=== PATIENT | female | born 1955 | race Caucasian/White ===

== ENCOUNTER 2019-03-22 06:26 | Day surgery (SDC) | payer MEDICARE, BC, SELFPAY ==
[2019-03-15 07:51] VITALS: BMI 22.3
[2019-03-22] VITALS (14 sets, daily range): BP systolic 106–178; BP diastolic 71–104; PULSE 55–74; RESP 10–20; TEMP 35.8–36.3; O2SAT 94–99; BMI 22.3
--- NOTE | 2019-03-22 | DI.RAD.S_ITS ---
PROCEDURE: XR CHEST 1V INDICATIONS: PORT PLACEMENT TECHNIQUE: One view of the chest was acquired. COMPARISON: None. FINDINGS: Surgical changes and devices: Port placement from right sided approach extends into the superior aspect of the superior vena cava. Surgical clips likely related to prior breast carcinoma are noted on the right, upper outer quadrant area.. Lungs and pleura: Lungs are clear. No pleural effusions or pneumothorax. Mediastinum: Mediastinal contours appear normal. Heart size is normal. Bones and chest wall: No suspicious bony lesions. Overlying soft tissues appear unremarkable. IMPRESSION: No pneumothorax after central line placement with tip in the upper aspect of the superior vena cava. Dictated by: Mark Anthony Jackson M.D. on 03/22/2019 at 10:57 Approved by: Mark Anthony Jackson M.D. on 03/22/2019 at 10:59
[2019-03-22] MEDS: LACTATED RINGERS 1,000 ML 42 ML IV (07:08)
--- NOTE | 2019-03-22 07:30 | PM.HP.1 ---
History of Present Illness History of Present Illness Date Patient Seen: 03/22/19 Time Patient Seen: 07:30 Chief complaint: [id number] Narrative: This is a 63-year-old female with right breast cancer,pT1c pN0. She has already undergone a lumpectomy and sentinel lymph node biopsy. She is scheduled to undergo chemotherapy as part of her breast cancer treatment. She is here today for a Port-A-Cath placement.. Today she is feeling well without pain nausea vomiting fever. Patient History Medical History Diverticulitis (Acute) Melanoma (Acute) Osteoporosis (Acute) Pneumonia (Acute) Surgical History History of hysterectomy (Acute) History of lumpectomy of right breast (Acute) Hx of rhinoplasty (Acute) S/P lumpectomy, right breast (Acute 01/25/19) Family & Social History Family History Mother Hypotension Brother Bladder cancer Brother Cancer of kidney Father Esophageal cancer Father Emphysema lung Social History: household members spouse Tobacco & Substance use: Smoking Status Never smoker alcohol intake current alcohol intake frequency 0-2 drinks per day Substance Use Type does not use Meds Home Medications and Allergies Home Medications Medication Instructions Recorded Confirmed Type calcium carbonate [Calcium 500] 1,500 mg DAILY 02/10/19 03/22/19 History multivitamin 1 tab PO DAILY 02/10/19 03/22/19 History dexamethasone 8 mg PO BID #48 tab 03/15/19 03/22/19 Rx Allergies Allergy/AdvReac Type Severity Reaction Status Date / Time Sulfa (Sulfonamide Allergy Rash Verified 03/22/19 07:14 Antibiotics) Review of Systems Review of Systems Narrative: A 10 point review of systems is negative except as noted in the HPI Exam Vital Signs (past 8 hours): - 03/22/19 07:15 03/22/19 07:19 Temperature 97.4 F L 97.4 F L Pulse Rate 74 74 Respiratory Rate 20 20 Blood Pressure 178/104 H 178/102 H Pulse Oximetry 99 Oxygen Delivery Method Room Air Narrative Exam Narrative: General-no acute distress, well nourished HEENT-moist mucous membranes, no scleral icterus Neck-supple, no lymphadenopathy Chest- non labored respirations, clear to auscultation bilaterally Cardiac-regular rate no peripheral edema Abdomen-soft, nontender, non distended Extremities-warm, well perfused Neurological-alert and oriented, no focal deficits Assessment & Plan Assessment and plan (1) Cancer of right breast, stage 1, estrogen receptor positive: Current visit: No Status: Acute Assessment & Plan narrative: This is a 63-year-old female with right breast cancer pT1c pN0. She is here today for Port-A-Cath placement. We discussed the nature of the procedure including the risks of bleeding infection pneumothorax. Will will plan for a left sided Port-A-Cath. Her questions have been answered she is in agreement with this plan.
[2019-03-22] MEDS: CEFAZOLIN 2 GM/100 ML FROZ.PIGGY IV (07:45)
--- NOTE | 2019-03-22 08:09 | SUR.OPER ---
Supine on padded OR bed, head on pillow, left arm padded and tucked at side, right arm secured on padded armboard, legs uncrossed, safety belt at thigh, tape over blanket over lower legs .
[2019-03-22] MEDS: HEPARIN 5,000 UNIT, SODIUM CHLORIDE 0.9% 50 ML IV (08:16)
[2019-03-22] MEDS: BUPIVACAINE 0.25% (PF) VIAL 30 ML INJ (08:17)
--- NOTE | 2019-03-22 09:09 | PM.OP.1 ---
Operative Date/Time/Diagnoses Date of procedure: 03/22/19 Time of procedure: 09:09 Pre-op diagnosis: Right breast cancer Post-op diagnosis: same Procedure & Clinicians Procedure: Ultrasound-guided Port-A-Cath placement Same procedure as scheduled: Yes Indications: 63-year-old female with breast cancer presents for a Port-A-Cath placement to facilitate chemotherapy Surgeon: Ar Rose Click Yes if Unassisted: Yes Anesthesia Type: General Operative Notes Findings: Port flushes and draws easily. Portable chest x-ray is pending in PACU. Estimated Blood Loss (mL): 10 Procedure in detail: Patient was brought to the operating room placed supine on table. Bilateral lower extremity compressive devices were applied. General anesthesia was induced and he was intubated with an LMA. He was then prepped and draped in usual sterile fashion. Time-out was performed ensure the correct patient procedure necessary equipment within the operating room. He received 2 g of Ancef prior to incision. Under ultrasound guidance attempts were made to access the left internal jugular vein. I was unable to access this vein as it continued to collapse. I moved to the right side and using ultrasound the right internal jugular vein was accessed under direct visualization. The guidewire was then threaded through the needle. Its placement was then confirmed using fluoroscopy. The dilator was then placed over the guidewire. The catheter was then inserted through the sheath. Placement was again confirmed with fluoroscopy. A subcutaneous pocket was made in the right chest wall. The tunneler device was used to move the catheter from the neck to the chest pocket. The port was attached after it was primed with heparined saline. The port was tested to ensure that it flushed easily and had good blood return. The port was then secured to the underlying fascia using interupted 0 Prolene suture. Hemostasis was achieved. The wound was irrigated with sterile saline. The subcutaneous tissues were reapproximated with the 3 0 Vicryl and then skin closed with 4-0 Monocryl. The skin was sealed with Dermabond. Patient tolerated procedure well. The sponge and instrument count at the end operation was correct. Patient emerged from general anesthesia was extubated and taken to the postoperative care unit in stable condition Complications: none Post-operative Condition: stable Disposition: same day surgery
[2019-03-22] MEDS: ONDANSETRON 4 MG/2 ML INJ IV (09:23)
[2019-03-22] MEDS: METOCLOPRAMIDE 10 MG/2 ML INJ IV (09:44)
[2019-03-22] MEDS: ACETAMINOPHEN 325 MG TABLET 650 MG PO (10:57)
--- NOTE | 2019-03-22 11:00 | SUR.PHASEII ---
LOw grade complaint of nausea, treated in PACU with meds, initially gone, then when pt ready to go stated she felt a tad nausea, now better, sipping tea with fiend at bedside, d/c instructions discussed with both, both voiced an understanding. Pt medicated with tylenol by Darleen, see EMAR.
--- NOTE | 2019-03-22 11:20 | SUR.PHASEII ---
Pt asked to go, denied nausea, denied pain. Dressed and left when ready and left in stable condition. Site remained, c/d/i underneath tegaderm.
== END 2019-03-22 11:20 | disposition home or self-care (01) ==
PROVIDERS: PCP Family Medicine; Referring Provider Family Medicine; Visit Provider Surgery
PROC: (CPT 36561; principal; 2019-03-22 07:45)
DX: C50.911 Malignant neoplasm of unspecified site of right female breast (principal); Z17.0 Estrogen receptor positive status [ER+]; Z45.2 Encounter for adjustment and management of vascular access device
CPT/HCPCS: 36561; 71045; 76000; C1788; J0690; J1644; J2405; J2704; J2765; J3010

== ENCOUNTER → 2019-07-23 15:14 | Outpatient (CLI) | payer MEDICARE, BC, SELFPAY ==
[2019-07-24 07:28] LABS: COVID19 Sendout Not Detected (Not Detect)
== END ==
PROVIDERS: PCP Family Medicine; Visit Provider Physician Assistant
DX: Z01.818 Encounter for other preprocedural examination (principal)
CPT/HCPCS: 87635

== ENCOUNTER 2019-07-26 14:51 | Day surgery (SDC) | payer MEDICARE, BC, SELFPAY ==
[2019-07-25 11:03] VITALS: BMI 22.3
[2019-07-26] VITALS (8 sets, daily range): BP systolic 130–179; BP diastolic 83–105; PULSE 68–79; RESP 10–20; TEMP 36.1–36.7; O2SAT 94–97; BMI 22.3
[2019-07-26] MEDS: LACTATED RINGERS 1,000 ML 100 ML IV (15:44)
[2019-07-26] MEDS: ACETAMINOPHEN 325 MG TABLET 975 MG PO (15:45)
[2019-07-26] MEDS: GABAPENTIN 300 MG CAPSULE PO (15:46)
--- NOTE | 2019-07-26 16:31 | PM.HP.1 ---
History of Present Illness History of Present Illness Date Patient Seen: 07/26/19 Time Patient Seen: 16:32 Chief complaint: [id number] Narrative: 64-year-old female with a history of right breast cancer who underwent lumpectomy sentinel lymph node biopsy and chemotherapy via Port-A-Cath. She is here today for Port-A-Cath removal. She is feeling well without fever port issues and she has tolerated the chemotherapy well. Patient History Medical History Diverticulitis (Acute) Melanoma (Acute) Osteoporosis (Acute) Pneumonia (Acute) Port-A-Cath in place (Acute 03/22/19) Surgical History History of hysterectomy (Acute) History of lumpectomy of right breast (Acute) Hx of rhinoplasty (Acute) S/P lumpectomy, right breast (Acute 01/25/19) Family & Social History Family History Mother Hypotension Brother Bladder cancer Brother Cancer of kidney Father Esophageal cancer Father Emphysema lung Social History: household members spouse Tobacco & Substance use: Smoking Status Never smoker alcohol intake current alcohol intake frequency 0-2 drinks per day Substance Use Type does not use Meds Home Medications and Allergies Home Medications Medication Instructions Recorded Confirmed Type calcium carbonate [Calcium 500] 1,500 mg PO DAILY 02/10/19 07/25/19 History multivitamin 1 tab PO DAILY 02/10/19 07/25/19 History Allergies Allergy/AdvReac Type Severity Reaction Status Date / Time Sulfa (Sulfonamide Allergy Rash Verified 07/26/19 15:23 Antibiotics) Review of Systems Review of Systems Narrative: A 10 point review of systems is negative except as noted in the HPI Exam Vital Signs (past 8 hours): - 07/26/19 15:25 Temperature 98.1 F Pulse Rate 77 Respiratory Rate 16 Blood Pressure 171/98 H Pulse Oximetry 96 Oxygen Delivery Method Room Air Narrative Exam Narrative: General-no acute distress, well nourished HEENT-moist mucous membranes, no scleral icterus Neck-supple, no lymphadenopathy Chest- non labored respirations, clear to auscultation bilaterally Cardiac-regular rate no peripheral edema Abdomen-soft, nontender, non distended Extremities-warm, well perfused Neurological-alert and oriented, no focal deficits Assessment & Plan Assessment & Plan narrative: 64-year-old female here for a Port-A-Cath removal after completing chemotherapy for breast cancer I discussed the technical nature of the procedure with her the operative risks of bleeding infection air embolism. Her questions have been answered she is in agreement with this plan will proceed to the operating room.
[2019-07-26] MEDS: CEFAZOLIN 2 GM/100 ML FROZ.PIGGY IV (16:45)
--- NOTE | 2019-07-26 16:58 | SUR.OPER ---
Supine on padded OR bed, head on pillow, arm padded and tucked at side, legs uncrossed, safety belt at thigh, tape over blanket over lower legs .
[2019-07-26] MEDS: BUPIVACAINE 0.25% (PF) VIAL 30 ML INJ (17:03)
--- NOTE | 2019-07-26 17:21 | PM.OP.1 ---
Operative Date/Time/Diagnoses Date of procedure: 07/26/19 Time of procedure: 17:21 Pre-op diagnosis: Breast cancer Post-op diagnosis: same Procedure & Clinicians Procedure: Port-A-Cath removal Same procedure as scheduled: Yes Indications: 64-year-old female with a history of right breast cancer who is completed chemotherapy a presents for Port-A-Cath removal. Surgeon: Ar Rose Anesthesia Type: MAC +/- Operative Notes Findings: Port-A-Cath catheter is intact Estimated Blood Loss (mL): 10 Procedure in detail: Patient was brought to the operating room and placed supine on the table. Bilateral lower extremity compression devices were applied. She received 2 g of Ancef prior to skin incision. Monitored anesthesia care was induced. Time-out was performed ensure the correct patient procedure necessary equipment within the operating room. She was prepped and draped in sterile fashion. An incision through the previous of Port-A-Cath scar on the right chest.. The subcutaneous tissues were divided with electrocautery. The Port-A-Cath was encountered and was freed from its surrounding attachments. The site of catheter entry was suture ligated with Vicryl suture at the 2 same time that the acute catheter was removed. The wound was hemostatic. Was irrigated and the skin healed infiltrated with local anesthetic. The subcutaneous tissue was closed with the Vicryl skin closed with a running 4 Monocryl suture followed by Dermabond and Steri-Strips. Patient emerged from anesthesia and was transferred to recovery room in stable condition. Complications: none Post-operative Condition: stable Disposition: same day surgery
--- NOTE | 2019-07-26 17:38 | SUR.PHASEI ---
Dr. Rose at bedside. Per Dr. Rose ok for pt to be discharged to home at this time. Notified Dr. Rose of pt pacu blood pressure readings, no new orders received. pt asymptomatic at this time.
[2019-07-26] MEDS: ONDANSETRON 4 MG ODT SL (17:57)
--- NOTE | 2019-07-26 17:58 | SUR.PHASEII ---
After taking pt IV out, pt c/o feeling nausated. Pt appeared pale in color. Placed cool wash cloth over pt forehead, lowered head of bed and turned over head light off. Zofran given per verbal order received from Dr. Perdue. Pt reports feeling better after zofran received. pt resting in bed at this time, bed in lowest position and call light given to pt.
== END 2019-07-26 18:31 | disposition home or self-care (01) ==
PROVIDERS: PCP Family Medicine; Referring Provider Surgery; Visit Provider Surgery
PROC: (CPT 36590; principal; 2019-07-26 16:15)
DX: Z45.2 Encounter for adjustment and management of vascular access device (principal); Z85.3 Personal history of malignant neoplasm of breast
CPT/HCPCS: 36590; J0690; J2250; J2704; J3010

== ENCOUNTER → 2019-08-18 12:25 | Outpatient (CLI) | payer MEDICARE, BC, SELFPAY | PROVIDERS: PCP Nurse Practitioner Family; Referring Provider Internal Medicine Hematology & Oncology; Visit Provider Internal Medicine Hematology & Oncology | DX: M81.0 Age-related osteoporosis without current pathological fracture (principal); Z78.0 Asymptomatic menopausal state; C50.911 Malignant neoplasm of unspecified site of right female breast; Z17.0 Estrogen receptor positive status [ER+]; Z82.62 Family history of osteoporosis | CPT/HCPCS: 77080 ==

== ENCOUNTER 2019-12-28 16:59 | Emergency (ER) | payer MEDICARE, BC, SELFPAY ==
[2019-12-28] VITALS (12 sets, daily range): BP systolic 152–209; BP diastolic 94–113; PULSE 69–88; RESP 11–22; TEMP 35.8–36.4; O2SAT 95–98; BMI 24.0
[2019-12-28 19:28] LABS: Add Manual Diff / Slide Review NO; Basophils Absolute Auto 100 /uL (0-100); Basophils Percent Auto 1.3 % (0-2); Eosinophils Absolute Auto 200 /uL (0-450); Eosinophils Percent Auto 3.3 % (2-4); Hematocrit 40.3 % (36-46); Hemoglobin 13.3 g/dL (12.0-16.0); Lymphocytes Absolute Auto 1600 /uL (1100-4500); Lymphocytes Percent Auto 29.5 % (25-40); Mean Corpuscular HGB Conc 32.9 % (30-36); Mean Corpuscular Hemoglobin 29.2 PG (26-34); Mean Corpuscular Volume 88.8 fL (80-100); Monocytes Absolute Auto 400 /uL (0-900); Monocytes Percent Auto 6.9 % (3-14); Neutrophils Absolute Auto 3200 /uL (1500-7000); Platelet Count 226 X10^3/uL (150-400); Red Blood Cell Count 4.54 X10^6/uL (4.0-5.2); Red Cell Distribution Width 15.1 % (11.6-14.8); White Blood Cell Count 5.4 X10^3/uL (4.5-11.0)
[2019-12-28 19:29] LABS: INR 0.9 (0.9-1.3); Prothrombin Time 10.9 SECONDS (10.1-12.7)
[2019-12-28 19:32] LABS: PTT Partial Thromboplastin Tim 31 SECONDS (26.4-36.2)
[2019-12-28 19:36] LABS: Alanine Aminotransferase 18 IU/L (<35); Albumin 4.1 g/dL (3.5-5.0); Albumin Globulin Ratio 1.4 (1.0-2.8); Alkaline Phosphatase 74 U/L (38-126); Aspartate Aminotransferase 28 IU/L (14-36); BUN Creatinine Ratio 21.8 (6-22); Bilirubin Total 0.3 mg/dL (0.2-1.3); Blood Urea Nitrogen 17 mg/dL (7-17); Carbon Dioxide 32 mmol/L (22-32); Chloride 107 mmol/L (98-107); Estimated Glomerular Filt Rate > 60.0 mL/min (>60); Globulin 2.9 g/dL (1.7-4.1); Glucose 105 mg/dL (80-110); HEMOLYSIS < 15 (0-50); Potassium 3.5 mmol/L (3.4-5.1); Sodium 139 mmol/L (137-145)
--- NOTE | 2019-12-28 19:54 | PC.NURSE ---
hector blood observed in collection hat.
[2019-12-28 21:52] LABS: Hematocrit 35.7 % (36-46)
--- NOTE | 2019-12-28 22:49 | ED_ITS ---
HPI - GI Bleed General Chief complaint: GI Bleed Stated complaint: blood in stool Time Seen by Provider: 12/28/19 19:49 History of Present Illness HPI Narrative: 64-year-old woman with a distant history of breast cancer, current osteoporosis who presents with bright red rectal bleeding beginning at 2:00 p.m. this afternoon. First episode there was a slight amount of stool mixed with the painless bright red blood. Followed by 3 other episodes of painless rectal bleeding with some clots. She reports no abdominal pain no significantly black stool recently. No prior history of GI bleeding of any sort. She has had a prior screening colonoscopy and was told that she had diverticulosis but has never had difficulties with diverticulitis. She reports no fevers, chills, cough, chest pain, palpitations, dizziness, abdominal pain, vomiting. Related Data Home Medications Medication Instructions Recorded Confirmed calcium carbonate [Calcium 500] 1,500 mg PO DAILY 02/10/19 08/04/19 multivitamin 1 tab PO DAILY 02/10/19 08/04/19 ferrous sulfate [iron] 325 mg PO DAILY 08/04/19 08/04/19 Previous Rx's Medication Instructions Recorded tamoxifen 20 mg PO DAILY #90 tab 09/15/19 Allergies Allergy/AdvReac Type Severity Reaction Status Date / Time Sulfa (Sulfonamide Allergy Rash Verified 07/26/19 15:23 Antibiotics) Review of Systems Review of Systems Narrative: Remainder of review of systems including constitutional, ENT, cardiovascular, respiratory, GI, , musculoskeletal, skin, neurologic and psychiatric systems reviewed and are unremarkable except as noted in HPI. Patient History Medical History Diverticulitis (Acute) Melanoma (Acute) Osteoporosis (Acute) Pneumonia (Acute) Port-A-Cath in place (Acute 03/22/19) Surgical History History of hysterectomy (Acute) History of lumpectomy of right breast (Acute) Hx of rhinoplasty (Acute) S/P lumpectomy, right breast (Acute 01/25/19) Family History Mother Hypotension Brother Bladder cancer Brother Cancer of kidney Father Esophageal cancer Father Emphysema lung Social History household members: spouse Smoking Status: Never smoker alcohol intake: current substance use type: does not use Smoking Status: Never smoker alcohol intake frequency: 0-2 drinks per day Substance Use Type: does not use Exam Narrative Exam Narrative: General: Healthy appearing, in no acute distress. Able to give a complete and coherent history. Well-nourished well-developed HEENT: Moist mucous membranes, normal sclera with reactive pupils, Neck: No JVD, supple Respiratory: Lungs are clear to auscultation, no wheezing no rales no rhonchi. Full and symmetrical air movement Cardiac: Regular rate and rhythm no murmurs no bruits Abdomen: Soft nontender good bowel tones, no flank pain Skin: Warm and dry, no rashes Neurologic: Grossly neurologically intact with no obvious asymmetries or abnormalities Extremities: No trauma, well perfused Psych: Cooperative, appropriate insight and affect Rectal exam: No internal or external hemorrhoids no masses or tumors appreciated in the lower rectal vault. Bright red blood mixed with stool on glove Initial Vital Signs Initial Vital Signs: Vital Signs Temperature 96.5 F L 12/28/19 17:03 Pulse Rate 88 12/28/19 17:03 Respiratory Rate 16 12/28/19 17:03 Blood Pressure 209/113 H 12/28/19 17:03 Pulse Oximetry 98 12/28/19 17:03 Course Orders Ordered: ED Orders 12/28/19 19:22 EKG-12 Lead Stat 12/28/19 21:44 Hemoglobin and Hematocrit Stat Vital Signs Vital signs: Vital Signs - 8 hr 12/28/19 20:30 12/28/19 21:00 12/28/19 21:30 Temperature Pulse Rate 72 71 69 Respiratory Rate 14 16 19 Blood Pressure 169/103 H 174/102 H 152/94 H Pulse Oximetry 95 96 96 12/28/19 22:00 12/28/19 22:01 12/28/19 22:30 Temperature Pulse Rate 78 85 72 Respiratory Rate 18 22 14 Blood Pressure 161/103 H 160/96 H Pulse Oximetry 95 12/28/19 23:00 12/28/19 23:16 Temperature 97.6 F Pulse Rate 82 Respiratory Rate 19 Blood Pressure 156/96 H Pulse Oximetry 95 MDM - GI Bleed Medical Records Attestation: I reviewed the patient's medical records. Lab Data Attestation: I reviewed the patient's lab results. Result diagrams: 12/28/19 21:44 12/28/19 18:15 Labs: Lab Results 12/28/19 12/28/19 12/28/19 Range/Units 18:15 18:15 18:15 WBC 5.4 (4.5-11.0) X10^3/uL RBC 4.54 (4.0-5.2) X10^6/uL Hgb 13.3 (12.0-16.0) g/dL Hct 40.3 (36-46) % MCV 88.8 (80-100) fL MCH 29.2 (26-34) PG MCHC 32.9 (30-36) % RDW 15.1 H (11.6-14.8) % Plt Count 226 (150-400) X10^3/uL Neut % (Auto) 59.0 (50-75) % Lymph % (Auto) 29.5 (25-40) % [place] % (Auto) 6.9 (3-14) % Eos % (Auto) 3.3 (2-4) % Baso % (Auto) 1.3 (0-2) % Neut # (Auto) 3200 (5485-4564) /uL Lymph # (Auto) 1600 (7070-6702) /uL [place] # (Auto) 400 (0-900) /uL Eos # (Auto) 200 (0-450) /uL Baso # (Auto) 100 (0-100) /uL PT 10.9 (10.1-12.7) SECONDS INR 0.9 (0.9-1.3) APTT 31 (26.4-36.2) SECONDS Sodium 139 (137-145) mmol/L Potassium 3.5 (3.4-5.1) mmol/L Chloride 107 (98-107) mmol/L Carbon Dioxide 32 (22-32) mmol/L BUN 17 (7-17) mg/dL Creatinine 0.78 (0.52-1.04) mg/dL Estimated GFR > 60.0 (>60) mL/min BUN/Creatinine Ratio 21.8 (6-22) Glucose 105 (80-110) mg/dL Calcium 9.0 (8.4-10.2) mg/dL Total Bilirubin 0.3 (0.2-1.3) mg/dL AST 28 (14-36) IU/L ALT 18 (<35) IU/L Alkaline Phosphatase 74 (38-126) U/L Total Protein 7.0 (6.3-8.2) g/dL Albumin 4.1 (3.5-5.0) g/dL Globulin 2.9 (1.7-4.1) g/dL Albumin/Globulin Ratio 1.4 (1.0-2.8) 12/28/19 Range/Units 21:44 WBC (4.5-11.0) X10^3/uL RBC (4.0-5.2) X10^6/uL Hgb 12.0 (12.0-16.0) g/dL Hct 35.7 L (36-46) % MCV (80-100) fL MCH (26-34) PG MCHC (30-36) % RDW (11.6-14.8) % Plt Count (150-400) X10^3/uL Neut % (Auto) (50-75) % Lymph % (Auto) (25-40) % [place] % (Auto) (3-14) % Eos % (Auto) (2-4) % Baso % (Auto) (0-2) % Neut # (Auto) (9256-5441) /uL Lymph # (Auto) (3323-1067) /uL [place] # (Auto) (0-900) /uL Eos # (Auto) (0-450) /uL Baso # (Auto) (0-100) /uL PT (10.1-12.7) SECONDS INR (0.9-1.3) APTT (26.4-36.2) SECONDS Sodium (137-145) mmol/L Potassium (3.4-5.1) mmol/L Chloride (98-107) mmol/L Carbon Dioxide (22-32) mmol/L BUN (7-17) mg/dL Creatinine (0.52-1.04) mg/dL Estimated GFR (>60) mL/min BUN/Creatinine Ratio (6-22) Glucose (80-110) mg/dL Calcium (8.4-10.2) mg/dL Total Bilirubin (0.2-1.3) mg/dL AST (14-36) IU/L ALT (<35) IU/L Alkaline Phosphatase (38-126) U/L Total Protein (6.3-8.2) g/dL Albumin (3.5-5.0) g/dL Globulin (1.7-4.1) g/dL Albumin/Globulin Ratio (1.0-2.8) MDM Narrative Medical decision making narrative: 64-year-old woman with bright red blood per rectum, painless. Last episode was approximately 3 hours ago and the restless gurgling feeling she felt in her abdomen seems to be subsiding. She and her live less than mild from the hospital with reliable transportation and with shared decision making decided that they would prefer to go home rather than be admitted for observation at this time. Her hematocrit did drop from 40.3-35.7 with a L of fluid. There is no suggestion of upper GI bleed and no internal have or external hemorrhoids on clinical exam to suggest benign hemorrhoidal bleeding. Most likely explanation at this point is a diverticular bleed. At this point I will discharge her home with the carefully discussed and well understood caveat that she needs to return should there be continued bleeding, dizziness, palpitations or any pain. She has and her both understand and agree with current plans for discharge. Discharge Plan Departure Patient Disposition: Home Clinical Impression: Diverticular hemorrhage Discharge Date/Time: 12/28/19 23:16 Instructions: DI for Gastrointestinal Bleeding Activity Restrictions/Additional Instructions: Thank you for coming in today It looks like you are having bleeding from your colon that very likely is a diverticular bleed. The bleeding does seem to be slowing down. You did lose a modest amount of blood and dropped your hematocrit(blood) from a normal level of 40.3 down to 35. Your blood pressure and heart rate have remained in the normal range. At this time, the bleeding seems to have slowed or stopped. I believe home discharge is safe knowing that your is immediately available and that you can get back to the hospital quickly. I would expect some blood mixed in with your next bowel movement. If you have increasing bleeding or blood spontaneously just coming from your bottom, you need to return to the emergency department. If you develop chest pain, shortness of breath, dizziness when you stand up you also need to return to the emergency department Please follow-up with your primary care physician. Appropriate follow-up for this condition would be a colonoscopy at some point in the future. I wish you the best Prescriptions: No Action multivitamin Tablet 1 tab PO DAILY RF: 0 calcium carbonate [Calcium 500] 500 mg calcium (1,250 mg) Tablet 1,500 mg PO DAILY RF: 0 ferrous sulfate [iron] 325 mg (65 mg iron) Tablet 325 mg PO DAILY RF: 0 tamoxifen 20 mg Tablet 20 mg PO DAILY Qty: 90 RF: 3 Referrals: Eve Galvin ARNP [Primary Care Provider] -
== END 2019-12-28 23:16 | disposition home or self-care (01) ==
PROVIDERS: Emergency Medicine; Emergency Provider Emergency Medicine; PCP Nurse Practitioner Family
DX: K57.31 Diverticulosis of large intestine without perforation or abscess with bleeding (principal)
CPT/HCPCS: 36415; 80053; 85014; 85018; 85025; 85610; 85730; 93005; 99283; 99284

== ENCOUNTER → 2020-01-17 09:49 | Outpatient (CLI) | payer MEDICARE, BC, SELFPAY ==
[2020-01-17 10:15] LABS: Add Manual Diff / Slide Review NO; Basophils Absolute Auto 0 /uL (0-100); Basophils Percent Auto 1.3 % (0-2); Eosinophils Absolute Auto 200 /uL (0-450); Eosinophils Percent Auto 6.4 % (2-4); Hematocrit 38.6 % (36-46); Hemoglobin 13.2 g/dL (12.0-16.0); Lymphocytes Absolute Auto 1300 /uL (1100-4500); Lymphocytes Percent Auto 33.3 % (25-40); Mean Corpuscular HGB Conc 34.1 % (30-36); Mean Corpuscular Hemoglobin 30.1 PG (26-34); Mean Corpuscular Volume 88.3 fL (80-100); Monocytes Absolute Auto 300 /uL (0-900); Monocytes Percent Auto 6.8 % (3-14); Neutrophils Absolute Auto 2000 /uL (1500-7000); Neutrophils Percent Auto 52.2 % (50-75); Platelet Count 203 X10^3/uL (150-400); Red Blood Cell Count 4.37 X10^6/uL (4.0-5.2); Red Cell Distribution Width 15.4 % (11.6-14.8); White Blood Cell Count 3.8 X10^3/uL (4.5-11.0)
[2020-01-17 10:26] LABS: Alanine Aminotransferase 13 IU/L (<35); Albumin 3.8 g/dL (3.5-5.0); Albumin Globulin Ratio 1.5 (1.0-2.8); Alkaline Phosphatase 65 U/L (38-126); Aspartate Aminotransferase 18 IU/L (14-36); BUN Creatinine Ratio 28.8 (6-22); Bilirubin Total 0.3 mg/dL (0.2-1.3); Blood Urea Nitrogen 19 mg/dL (7-17); Calcium 8.9 mg/dL (8.4-10.2); Carbon Dioxide 32 mmol/L (22-32); Chloride 107 mmol/L (98-107); Estimated Glomerular Filt Rate > 60.0 mL/min (>60); Globulin 2.5 g/dL (1.7-4.1); Glucose 98 mg/dL (80-110); HEMOLYSIS < 15 (0-50); Potassium 3.9 mmol/L (3.4-5.1); Sodium 138 mmol/L (137-145); Total Protein 6.3 g/dL (6.3-8.2)
== END ==
PROVIDERS: PCP Nurse Practitioner Family; Referring Provider Internal Medicine Hematology & Oncology; Visit Provider Internal Medicine Hematology & Oncology
DX: C50.911 Malignant neoplasm of unspecified site of right female breast (principal); Z17.0 Estrogen receptor positive status [ER+]
CPT/HCPCS: 36415; 80053; 85025

== ENCOUNTER → 2020-02-22 12:37 | Outpatient (CLI) | payer MEDICARE, BC, SELFPAY ==
--- NOTE | 2020-02-22 12:41 | DI.US.S_ITS ---
LIMITED ULTRASOUND OF RIGHT BREAST: 02/22/2020 CLINICAL: Patient returns today to evaluate a focal asymmetry in the right breast. Comparison is made to exams dated: 02/22/2020 mammogram - [facility], 01/25/2019 specimen, 12/16/2018 ultrasound biopsy, 12/09/2018 ultrasound, and 12/01/2018 mammogram - outside location. Color flow and real-time ultrasound of the right breast 11 o'clock region were performed. Real-time ultrasonography of right breast was performed with computer guidance to assure complete coverage of the breast tissue and to provide a uniform data set. Images were transferred to a viewing station for 3-D rendering. No significant abnormalities were seen sonographically in the right breast. IMPRESSION: NEGATIVE There is no sonographic evidence of malignancy. Return to annual mammogram screening schedule is recommended. This exam was interpreted at Station ID: [id number]. Electronically Signed By: Kayden Smith M.D., jr/orin:02/22/2020 13:58:45 letter sent: Normal Exam Ultrasound BI-RADS: 1 Negative
--- NOTE | 2020-02-22 12:41 | DI.MG.S_ITS ---
BILATERAL DIGITAL DIAGNOSTIC MAMMOGRAM 3D/2D POST LUMPECTOMY: 02/22/2020 CLINICAL: Short term follow up of the right breast, due for bilateral imaging. Comparison is made to exams dated: 12/01/2018 mammogram, 12/09/2018 ultrasound, and 12/16/2018 ultrasound biopsy - outside location. The tissue of both breasts is predominantly fatty. There is a post-surgical scar in the right breast at 12 o'clock middle depth. There are also surgical clips with radiation-associated skin and trabecular thickening. IMPRESSION: INCOMPLETE: NEEDS ADDITIONAL IMAGING EVALUATION Post-surgical scarring in the right breast related to lumpectomy. No evidence of a residual or recurrent malignancy. Ultrasound is recommneded and has been scheduled to immediately follow. This exam was interpreted at Station ID: [id number]. NOTE: For mammograms, a report in lay terms will be sent to the patient. Approximately 15% of breast malignancies will not be visualized mammographically. In the management of a palpable breast mass, a negative mammogram must not discourage biopsy of a clinically suspicious lesion. Electronically Signed By: Kayden Smith M.D. jr/:02/22/2020 13:14:46 ACR BI-RADS Category 0: Incomplete [id number]
== END ==
PROVIDERS: PCP Nurse Practitioner Family; Referring Provider Internal Medicine Hematology & Oncology; Visit Provider Internal Medicine Hematology & Oncology
DX: R92.8 Other abnormal and inconclusive findings on diagnostic imaging of breast (principal); C50.911 Malignant neoplasm of unspecified site of right female breast; Z17.0 Estrogen receptor positive status [ER+]
CPT/HCPCS: 76642; 77066; G0279

== ENCOUNTER → 2021-02-22 10:04 | Outpatient (CLI) | payer MEDICARE, BC, SELFPAY ==
--- NOTE | 2021-02-22 10:07 | DI.MG.S_ITS ---
BILATERAL DIGITAL SCREENING MAMMOGRAM 3D/2D WITH CAD: 02/22/2021 CLINICAL: Routine screening. Personal history of right breast cancer. Family history of breast cancer. Comparison is made to exams dated: 02/22/2020 mammogram - [facility], 12/01/2018 mammogram, 12/09/2018 ultrasound - outside location, and 02/22/2020 ultrasound - [facility]. The tissue of both breasts is heterogeneously dense. This may lower the sensitivity of mammography. Current study was also evaluated with a Computer Aided Detection (CAD) system. There are benign post operative findings in the right breast. No significant masses, calcifications, or other findings are seen in either breast. There has been no significant interval change. IMPRESSION: BENIGN There is no mammographic evidence of malignancy. A 1 year screening mammogram is recommended. This exam was interpreted at Station ID: [id number]. NOTE: For mammograms, a report in lay terms will be sent to the patient. Approximately 15% of breast malignancies will not be visualized mammographically. In the management of a palpable breast mass, a negative mammogram must not discourage biopsy of a clinically suspicious lesion. Electronically Signed By: De Burks acr/penrad:02/22/2021 11:20:23 letter sent: Normal Exam ACR BI-RADS Category 2: Benign Finding(s) 3342F
== END ==
PROVIDERS: PCP Nurse Practitioner Family; Referring Provider Internal Medicine Hematology & Oncology; Visit Provider Internal Medicine Hematology & Oncology
DX: Z12.31 Encounter for screening mammogram for malignant neoplasm of breast (principal); C50.911 Malignant neoplasm of unspecified site of right female breast; Z17.0 Estrogen receptor positive status [ER+]; Z80.3 Family history of malignant neoplasm of breast
CPT/HCPCS: 77063; 77067

== ENCOUNTER → 2021-08-26 06:55 | Outpatient (CLI) | payer MEDICARE, BC, SELFPAY ==
[2021-08-26 07:43] LABS: Add Manual Diff / Slide Review NO; Basophils Absolute Auto 0 /uL (0-100); Basophils Percent Auto 1.3 % (0-2); Eosinophils Absolute Auto 400 /uL (0-450); Eosinophils Percent Auto 10.4 % (2-4); Hematocrit 40.4 % (36-46); Hemoglobin 13.8 g/dL (12.0-16.0); Lymphocytes Absolute Auto 1200 /uL (1100-4500); Lymphocytes Percent Auto 34.4 % (25-40); Mean Corpuscular HGB Conc 34.2 % (30-36); Mean Corpuscular Hemoglobin 30.1 PG (26-34); Mean Corpuscular Volume 88.1 fL (80-100); Monocytes Absolute Auto 200 /uL (0-900); Monocytes Percent Auto 6.2 % (3-14); Neutrophils Absolute Auto 1700 /uL (1500-7000); Neutrophils Percent Auto 47.7 % (50-75); Platelet Count 170 X10^3/uL (150-400); Red Blood Cell Count 4.59 X10^6/uL (4.0-5.2); Red Cell Distribution Width 14.4 % (11.6-14.8); White Blood Cell Count 3.5 X10^3/uL (4.5-11.0)
[2021-08-26 07:55] LABS: Cholesterol 209 mg/dL (140-199); HDL Cholesterol 108 mg/dL (40-60); LDL Cholesterol Calculated 92 mg/dL (<100); Triglycerides 44 mg/dL (35-150)
[2021-08-26 08:14] LABS: Alanine Aminotransferase 14 IU/L (<35); Albumin 3.7 g/dL (3.5-5.0); Albumin Globulin Ratio 1.6 (1.0-2.8); Alkaline Phosphatase 45 U/L (38-126); Aspartate Aminotransferase 22 IU/L (14-36); BUN Creatinine Ratio 20.3 (6-22); Bilirubin Total 0.4 mg/dL (0.2-1.3); Blood Urea Nitrogen 15 mg/dL (7-17); Calcium 8.5 mg/dL (8.4-10.2); Carbon Dioxide 27 mmol/L (22-32); Chloride 109 mmol/L (98-107); Estimated Glomerular Filt Rate > 60 mL/min (>60); Globulin 2.3 g/dL (1.7-4.1); Glucose 98 mg/dL (80-110); HEMOLYSIS < 15 (0-50); Lactate Dehydrogenase 392 U/L (313-618); Potassium 4.1 mmol/L (3.4-5.1); Sodium 139 mmol/L (137-145)
[2021-08-26 08:29] LABS: Free T3, Triiodothyronine Free 3.78 pg/mL (2.77-5.27); Free T4, Direct Thyroxine 0.88 ng/dL (0.78-2.19)
[2021-08-26 08:43] LABS: Thyroid Stimulating Hormone 0.973 uIU/mL (0.47-4.68)
[2021-08-26 12:25] LABS: Creatinine Urine Random 172.1 mg/dL; Microalbumi Creatinin Ratio Ur 4.6 ug/mg CR (<30); Microalbumin Urine Random 0.8 mg/dL (0-1.6)
== END ==
PROVIDERS: Internal Medicine Hematology & Oncology; PCP Nurse Practitioner; Referring Provider Nurse Practitioner; Visit Provider Nurse Practitioner
DX: I10 Essential (primary) hypertension (principal); Z13.6 Encounter for screening for cardiovascular disorders; Z79.899 Other long term (current) drug therapy; C50.911 Malignant neoplasm of unspecified site of right female breast; Z17.0 Estrogen receptor positive status [ER+]
CPT/HCPCS: 36415; 80053; 80061; 82043; 82570; 83615; 84439; 84443; 84481; 85025

== ENCOUNTER → 2021-08-29 15:01 | Outpatient (CLI) | payer MEDICARE, BC, SELFPAY | PROVIDERS: PCP Nurse Practitioner; Referring Provider Nurse Practitioner; Visit Provider Nurse Practitioner | DX: M81.0 Age-related osteoporosis without current pathological fracture (principal); Z78.0 Asymptomatic menopausal state; Z85.3 Personal history of malignant neoplasm of breast; Z85.828 Personal history of other malignant neoplasm of skin; Z90.710 Acquired absence of both cervix and uterus; C50.911 Malignant neoplasm of unspecified site of right female breast; Z17.0 Estrogen receptor positive status [ER+]; Z79.810 Long term (current) use of selective estrogen receptor modulators (SERMs); Z79.82 Long term (current) use of aspirin | CPT/HCPCS: 77080; 99214 ==

== ENCOUNTER → 2022-02-24 15:53 | Outpatient (CLI) | payer MEDICARE, BC, SELFPAY ==
--- NOTE | 2022-02-24 15:59 | DI.MG.S_ITS ---
BILATERAL DIGITAL SCREENING MAMMOGRAM 3D/2D WITH CAD: 02/24/2022 CLINICAL: Routine screening. Family history of breast cancer. Breast cancer. Comparison is made to exams dated: 02/22/2021 mammogram, 02/22/2020 mammogram - [facility], and 12/01/2018 mammogram - outside location. Both breasts are heterogeneously dense, which may obscure small masses (category c / 51-75% glandular tissue). Current study was also evaluated with a Computer Aided Detection (CAD) system. There are benign calcifications in the left breast. There also are benign post operative findings in the right breast. No significant masses, calcifications, or other findings are seen in either breast. There has been no significant interval change. IMPRESSION: BENIGN There is no mammographic evidence of malignancy. A 1 year screening mammogram is recommended. This exam was interpreted at Station ID: [id number]. NOTE: For mammograms, a report in lay terms will be sent to the patient. Approximately 15% of breast malignancies will not be visualized mammographically. In the management of a palpable breast mass, a negative mammogram must not discourage biopsy of a clinically suspicious lesion. Electronically Signed By: Sveta so/orin:02/26/2022 09:28:08 letter sent: Normal Exam ACR BI-RADS Category 2: Benign Finding(s) 3342F
== END ==
PROVIDERS: PCP Nurse Practitioner; Referring Provider Nurse Practitioner; Visit Provider Nurse Practitioner
DX: Z12.31 Encounter for screening mammogram for malignant neoplasm of breast (principal); C50.911 Malignant neoplasm of unspecified site of right female breast; M81.0 Age-related osteoporosis without current pathological fracture; Z17.0 Estrogen receptor positive status [ER+]; Z80.3 Family history of malignant neoplasm of breast
CPT/HCPCS: 77063; 77067

== ENCOUNTER → 2023-02-27 15:21 | Outpatient (CLI) | payer MEDICARE, SELFPAY ==
--- NOTE | 2023-02-27 15:22 | DI.MG.S_ITS ---
BILATERAL DIGITAL SCREENING MAMMOGRAM 3D/2D WITH CAD: 02/27/2023 CLINICAL: Routine screening. Personal history of right breast cancer. Family history of breast cancer. Comparison is made to exams dated: 02/24/2022 mammogram, 02/22/2021 mammogram, and 02/22/2020 mammogram - [facility]. Both breasts are heterogeneously dense, which may obscure small masses (category c / 51-75% glandular tissue). Current study was also evaluated with a Computer Aided Detection (CAD) system. There are benign calcifications in the left breast. There also are benign post operative findings in the right breast. No significant masses, calcifications, or other findings are seen in either breast. There has been no significant interval change. IMPRESSION: BENIGN There is no mammographic evidence of malignancy. A 1 year screening mammogram is recommended. This exam was interpreted at Station ID: [id number]. NOTE: For mammograms, a report in lay terms will be sent to the patient. Approximately 15% of breast malignancies will not be visualized mammographically. In the management of a palpable breast mass, a negative mammogram must not discourage biopsy of a clinically suspicious lesion. Electronically Signed By: Sveta so/orin:03/02/2023 08:57:43 letter sent: Normal Exam ACR BI-RADS Category 2: Benign Finding(s) 3342F
== END ==
LOC: MAMMO 15:22
PROVIDERS: PCP Nurse Practitioner; Referring Provider Nurse Practitioner; Visit Provider Nurse Practitioner
DX: Z12.31 Encounter for screening mammogram for malignant neoplasm of breast (principal); C50.911 Malignant neoplasm of unspecified site of right female breast; Z17.0 Estrogen receptor positive status [ER+]; Z80.3 Family history of malignant neoplasm of breast; R92.333 Mammographic heterogeneous density, bilateral breasts
CPT/HCPCS: 77063; 77067

== ENCOUNTER → 2023-12-29 11:13 | Outpatient (CLI) | payer MEDICARE, SELFPAY ==
--- NOTE | 2023-12-29 11:16 | DI.RAD.S_ITS ---
PROCEDURE: XR DEXA AXIAL SKELETON INDICATIONS: last DEXA 2021, currently not on treatment; monitoring COMPARISON: [facility], , XR DEXA AXIAL SKELETON, 08/29/2021, 15:26. [facility], CR, XR DEXA AXIAL SKELETON, 08/18/2019, 12:59. FINDINGS: Lumbar Spine: Bone mineral density 0.643 g/cm2, T score -3.4, no statistically significant change compared to prior. Left Hip: Bone mineral density 0.690 g/cm2, T score -2.1, decreased compared to prior by 6.2%. Left Femoral Neck: Bone mineral density 0.601 g/cm2, T score -2.2. Right Hip: Bone mineral density 0.680 g/cm2, T score -2.1, decreased by 4.3%. Right Femoral Neck: Bone mineral density is 0.529 g/cm2, T score -2.9. Fracture Risk Calculation (when applicable): 10-year fracture risk of a major osteoporotic fracture 16 percent and of a hip fracture 4.8 percent. (T score greater or equal to -1.0 to: NORMAL) (T score from -1.1 to -2.4: OSTEOPENIA) (T score less than or equal to -2.5: OSTEOPOROSIS) IMPRESSION: Osteoporosis by WHO classification. Follow-up guidelines as follows: Osteoporosis: Consider a repeat DEXA and Vertebral Fracture Assessment (VFA) exam in 2 years or sooner if medically necessary, to reassess this patient's status. Osteopenia: Consider a repeat DEXA in 2-3 years to reassess this patient's status, or if there is a new clinical indication. Normal: Consider a repeat DEXA in 5 years or sooner, or if there is a new clinical indication. All treatment decisions require clinical judgment and consideration of individual patient factors, including patient preferences, comorbidities, previous drug use, risk factors not captured in the FRAX model (e.g., frailty, falls, vitamin D deficiency, increased bone turnover, interval significant decline in bone density ) and possible under- or over-estimation of fracture risk by FRAX. In addition, the NOF Guide recommends that FDA-approved medical therapies be considered in postmenopausal women and men age >= 50 years with a: * Hip or vertebral (clinical or morphometric) fracture * T-score of <=-2.5 at the spine or hip * Ten-year fracture probability by FRAX of >= 3% for hip fracture or >=20% for major osteoporotic fracture. People with diagnosed cases of osteoporosis or at high risk for fracture should have regular bone mineral density tests. For patients eligible for Medicare, routine testing is allowed once every 2 years. The testing frequency can be increased to one year for patients who have rapidly progressing disease, those who are receiving or discontinuing medical therapy to restore bone mass, or have additional risk factors. Dictated by: Seymour Ferguson M.D. on 12/29/2023 at 15:14 Approved by: Seymour Ferguson M.D. on 12/29/2023 at 15:16
== END ==
PROVIDERS: PCP Family Medicine; Referring Provider Family Medicine; Visit Provider Family Medicine
DX: M81.0 Age-related osteoporosis without current pathological fracture (principal)
CPT/HCPCS: 77080

== ENCOUNTER → 2024-04-01 07:32 | Outpatient (CLI) | payer MEDICARE, SELFPAY ==
--- NOTE | 2024-04-01 07:36 | DI.RAD.S_ITS ---
PROCEDURE: XR THORACIC SPINE 2V INDICATIONS: back pain TECHNIQUE: Two views of the thoracic spine were acquired. COMPARISON: None. FINDINGS: Thoracic spine curvature and alignment: Slight rightward curve appreciated. Bones: Minimal chronic wedging upper midthoracic vertebral bodies noted Disc spaces: Moderate degenerative disc disease seen throughout the upper midthoracic spine with mild degenerative disc disease lower thoracic spine Soft tissues: No soft tissue swelling, calcification or mass. IMPRESSION: Chronic findings as described Dictated by: Jonathan Ruffin M.D. on 04/01/2024 at 10:37 Approved by: Jonathan Ruffin M.D. on 04/01/2024 at 10:38
[2024-04-01 08:48] LABS: Add Manual Diff / Slide Review NO; Basophils Absolute Auto 0 /uL (0-100); Basophils Percent Auto 1.1 % (0-2); Eosinophils Absolute Auto 100 /uL (0-450); Hematocrit 42.9 % (36-46); Hemoglobin 14.3 g/dL (12.0-16.0); Lymphocytes Absolute Auto 1400 /uL (1100-4500); Mean Corpuscular HGB Conc 33.3 % (30-36); Mean Corpuscular Hemoglobin 29.7 PG (26-34); Mean Corpuscular Volume 89.2 fL (80-100); Monocytes Absolute Auto 300 /uL (0-900); Monocytes Percent Auto 6.5 % (3-14); Neutrophils Absolute Auto 2100 /uL (1500-7000); Neutrophils Percent Auto 54.4 % (50-75); Platelet Count 186 X10^3/uL (150-400); Red Blood Cell Count 4.81 X10^6/uL (4.0-5.2); Red Cell Distribution Width 14.6 % (11.6-14.8); White Blood Cell Count 3.9 X10^3/uL (4.5-11.0)
[2024-04-01 09:04] LABS: Alanine Aminotransferase 13 IU/L (<35); Albumin Globulin Ratio 1.7 (1.0-2.8); Alkaline Phosphatase 58 U/L (38-126); Aspartate Aminotransferase 21 IU/L (14-36); BUN Creatinine Ratio 32.4 (6-22); Bilirubin Total 0.4 mg/dL (0.2-1.3); Blood Urea Nitrogen 23 mg/dL (7-17); Carbon Dioxide 23 mmol/L (22-32); Chloride 110 mmol/L (98-107); Estimated Glomerular Filt Rate > 60 mL/min (>60); Globulin 2.4 g/dL (1.7-4.1); Glucose 91 mg/dL (80-110); HEMOLYSIS < 15 (0-50); Magnesium 2.1 mg/dL (1.6-2.3); Phosphorous 3.8 mg/dL (2.8-4.1); Potassium 4.1 mmol/L (3.4-5.1); Sodium 139 mmol/L (137-145); Total Protein 6.4 g/dL (6.3-8.2)
[2024-04-01 09:20] LABS: Vitamin D 25 Hydroxy (D3) 67.4 ng/mL (30.0-100.0)
[2024-04-01 09:21] LABS: Free T4, Direct Thyroxine 0.88 ng/dL (0.78-2.19)
[2024-04-01 09:34] LABS: Thyroid Stimulating Hormone 1.21 uIU/mL (0.47-4.68)
[2024-04-01 09:38] LABS: Ferritin 21 ng/mL (11-264)
[2024-04-01 09:54] LABS: Vitamin B12 722 pg/mL (239-931)
[2024-04-02 11:36] LABS: Calcium 8.8 mg/dL (8.7-10.3); Parathyroid Hormone, Intact 49 pg/mL (15-65)
[2024-04-03 17:36] LABS: Tissue Transglutaminase IgA <2 U/mL (0-3)
== END ==
PROVIDERS: PCP Family Medicine; Referring Provider Family Medicine; Visit Provider Family Medicine
DX: M51.34 Other intervertebral disc degeneration, thoracic region (principal); R79.0 Abnormal level of blood mineral; M81.0 Age-related osteoporosis without current pathological fracture; M54.50 Low back pain, unspecified
CPT/HCPCS: 36415; 72070; 80053; 82306; 82310; 82523; 82607; 82728; 83516; 83735; 83970; 84100; 84439; 84443; 85025

== ENCOUNTER → 2024-04-04 07:53 | Outpatient (CLI) | payer MEDICARE, SELFPAY ==
[2024-04-04 10:27] LABS: Calcium 24 Hour Urine 361 mg/day (100-300); Calcium Urine Random 17.2 mg/dL; Collection Time Urine 24 Hours; Total Volume Urine 2100 mL
== END ==
PROVIDERS: PCP Family Medicine; Referring Provider Family Medicine; Visit Provider Family Medicine
DX: M81.0 Age-related osteoporosis without current pathological fracture (principal); R79.0 Abnormal level of blood mineral
CPT/HCPCS: 82340

== ENCOUNTER → 2024-04-18 08:36 | Outpatient (CLI) | payer MEDICARE, SELFPAY ==
--- NOTE | 2024-04-18 08:37 | DI.MG.S_ITS ---
MM screening mammo BI: 04/18/2024. BI-RADS: 2 CLINICAL: 68-year old female for bilateral screening mammogram. No Tyrer-Cuzick risk score calculation due to the patient's personal history of breast cancer. Patient reports a history of right breast carcinoma diagnosed at age 63. Status-post right lumpectomy with radiation therapy and chemotherapy. Current reported family history of breast cancer: father. Patient was diagnosed within the last 5 years. The patient had a prior right breast biopsy. PRIOR EXAMS: Comparison is made with relevant prior imaging in PACS including the most recent: MAMMOGRAPHY TECHNIQUE: 2D and 3D (tomosynthesis) digital mammographic views obtained, with additional images as needed for full coverage. Current study was also evaluated with a Computer Aided Detection (CAD) system. DENSITY C. The breasts are heterogeneously dense, which may obscure small masses. MAMMOGRAPHY FINDINGS Right: Benign-appearing post-surgical changes noted on the right. No suspicious finding with benign findings noted. Left: No suspicious mass, asymmetry, microcalcification, or other abnormality seen. IMPRESSION: Right * No evidence of malignancy with benign findings. Left * No evidence of malignancy. RECOMMENDATIONS Bilateral * Annual screening mammography. OVERALL ASSESSMENT CATEGORY BI-RADS-2: Benign. The [employer] recommends annual screening mammography beginning at age 40 for women with average risk of breast cancer. ELECTRONICALLY SIGNED: Avtar Cruz M.D. on 04/19/2024 at 09:02:42 AM Interpreting Station ID: [id number]
== END ==
LOC: MAMMO 08:37
PROVIDERS: PCP Family Medicine; Referring Provider Family Medicine; Visit Provider Family Medicine
DX: Z12.31 Encounter for screening mammogram for malignant neoplasm of breast (principal); R92.333 Mammographic heterogeneous density, bilateral breasts
CPT/HCPCS: 77063; 77067

== ENCOUNTER → 2024-12-19 07:48 | Outpatient (CLI) | payer MEDICARE, SELFPAY ==
[2024-12-19 08:39] LABS: Add Manual Diff / Slide Review NO; Hematocrit 43.1 % (36-46); Hemoglobin 14.5 g/dL (12.0-16.0); Lymphocytes Absolute Auto 1300 /uL (1100-4500); Mean Corpuscular HGB Conc 33.7 % (30-36); Mean Corpuscular Hemoglobin 29.4 PG (26-34); Mean Corpuscular Volume 87.2 fL (80-100); Platelet Count 212 X10^3/uL (150-400)
[2024-12-19 08:56] LABS: HEMOLYSIS < 15 (0-50); Iron 79 ug/dL (37-170)
[2024-12-19 09:08] LABS: Percent Iron Saturation 29 % (15-50); Total Iron Binding Capacity 268 ug/dL (265-497); Transferrin 255 mg/dL (206-381)
[2024-12-19 09:13] LABS: Free T3, Triiodothyronine Free 3.70 pg/mL (2.77-5.27); Free T4, Direct Thyroxine 1.03 ng/dL (0.78-2.19)
[2024-12-19 09:27] LABS: TSH w/ Reflex to FT4 0.93 uIU/mL (0.47-4.68)
[2024-12-19 09:36] LABS: Ferritin 17 ng/mL (11-264)
== END ==
PROVIDERS: PCP Family Medicine; Referring Provider Physician Assistant; Visit Provider Physician Assistant
DX: L65.9 Nonscarring hair loss, unspecified (principal)
CPT/HCPCS: 36415; 82728; 83540; 83550; 84439; 84443; 84481; 85025; 86376